=== PATIENT | female | born 1970 | race Caucasian/White ===

== ENCOUNTER 2016-04-14 08:55 | Day surgery (SDC) | payer OTHER ==
[~2016-04-14] VITALS: Ht 149.9 cm; Wt 84.4 kg
[~2016-04-14 08:55] MED LIST: ASPIR 8181 M1 PO; ATROVENT H200 INHALA IH; B COMPLETE1 EACH PO; FLEXERIL10 MG PO; GLUCOPHAGE500 MG PO; IRON325 M1 PO; MEGACE40 MG PO; MOTRIN600 MG PO; NASONEX17 GM BOTH NARES; NEXIUM40 MG PO; NO HOME MEDS; PROVENTIL HFA6.7 GM IH; PROZAC20 MG PO; SYNTHROID75 MCG PO; VICODIN,LORT1 TABLET PO; ZESTRIL20 MG PO; ZOCOR40 MG PO; ZYRTEC10 M3 PO
[2016-04-14 09:42] VITALS: BP 109/74
[2016-04-14 10:07] LABS: POINT-OF-CARE METER ID UU14174212
[2016-04-14] MEDS ORDERED: VICODIN 5-3001 EACH PO (10:24)
[2016-04-14] MEDS ORDERED: MOTRIN800 MG PO (10:24)
[2016-04-14 11:59] LABS: POINT-OF-CARE METER ID UU13113675; POINT-OF-CARE USER ID 515036437
[2016-04-14 12:25] VITALS: BP 135/74
[2016-04-14 13:05] VITALS: BP 125/79
== END 2016-04-14 13:25 | disposition home or self-care (01) ==
LOC: SDC 08:55
PROVIDERS: Obstetrics & Gynecology
DX: N93.9 Abnormal uterine and vaginal bleeding, unspecified (principal); E11.9 Type 2 diabetes mellitus without complications; I10 Essential (primary) hypertension; J45.909 Unspecified asthma, uncomplicated; E03.9 Hypothyroidism, unspecified; Z88.0 Allergy status to penicillin; F17.200 Nicotine dependence, unspecified, uncomplicated
CPT/HCPCS: 82948; 88305; J0330; J1100; J1885; J2250; J2405; J3010; J7120

== ENCOUNTER → 2017-09-22 | Outpatient (CLI) | payer OTHER ==
[~2017-09-22] MED LIST changes: +MOTRIN800 MG PO; +VICODIN 5-3001 EACH PO
== END | disposition home or self-care (01) ==
LOC: NUC 08:18
DX: R10.13 Epigastric pain (principal); R11.2 Nausea with vomiting, unspecified; E66.9 Obesity, unspecified; F17.210 Nicotine dependence, cigarettes, uncomplicated
CPT/HCPCS: 78264; A9541